=== PATIENT | male | born 1980 | race Caucasian/White ===

== ENCOUNTER 2017-03-16 13:47 | Emergency (ER) | payer SELFPAY ==
[~2017-03-16] VITALS: Ht 177.8 cm; Wt 74.8 kg
[~2017-03-16 13:47] MED LIST: 'PARAFON FORTE500 M1 PO; HYDROCODONE BIT1 T11 PO; IBU800 M1 PO; NAPROSYN500 MG PO; PENICILLIN-VK500 M1 PO
[2017-03-16 14:22] LABS: BASO # 0.1 10*3/uL (0.0-0.1); BASO % 0.5 % (0.0-1.0); EOS # 0.2 10*3/uL (0.0-0.4); EOS % 1.8 % (1.0-4.0); HEMATOCRIT 41.5 % (42.0-52.0); HEMOGLOBIN 13.8 g/dl (14.0-18.0); LYMPH # 2.5 10*3/uL (1.3-4.4); LYMPH % 22.4 % (27.0-41.0); MEAN CORPUSCULAR HGB 30.3 pg (27.0-31.0); MEAN CORPUSCULAR HGB CONC 33.3 g/dl (33.0-37.0); MEAN PLATELET VOLUME 9.9 fl (9.6-12.3); MONO # 0.7 10*3/uL (0.1-1.0); MONO % 6.5 % (3.0-9.0); NEUT # 7.6 10*3/uL (2.3-7.9); NEUT % 68.4 % (47.0-73.0); PLATELET COUNT AUTOMATED 257 10*3/uL (130-400); RED BLOOD COUNT 4.56 10*6/uL (4.50-5.90); WHITE BLOOD COUNT 11.1 10*3/uL (4.8-10.8)
[2017-03-16 14:38] LABS: ALBUMIN 3.6 gm/dl (3.1-4.5); ALKALINE PHOSPHATASE 84 U/L (45-117); BILIRUBIN, TOTAL 0.3 mg/dl (0.2-1.0); BUN 14 mg/dl (7-24); CARBON DIOXIDE 27 mmol/L (21-32); CHLORIDE 111 mmol/L (98-107); EST GLOM FILT AFRICAN AMERICAN > 60 ml/min; GLUCOSE 111 mg/dL (65-99); POTASSIUM 3.9 mmol/L (3.5-5.1); SGOT/AST 35 IU/L (3-35); SGPT/ALT 37 U/L (12-78); SODIUM 144 mmol/L (136-145); TOTAL PROTEIN 6.7 gm/dL (6.4-8.2); URIC ACID 6.1 mg/dL (3.5-7.2)
[2017-03-16] MEDS ORDERED: PREDNISONE20 M1 PO (14:51)
== END 2017-03-16 15:03 | disposition home or self-care (01) ==
LOC: ED 13:47
PROVIDERS: Physician Assistant
DX: M79.89 Other specified soft tissue disorders (principal); R20.0 Anesthesia of skin

== ENCOUNTER 2017-05-04 17:13 | Emergency (ER) | payer SELFPAY ==
[~2017-05-04] VITALS: Ht 177.8 cm; Wt 74.8 kg
[~2017-05-04 17:13] MED LIST changes: +PREDNISONE20 M1 PO
[2017-05-04] MEDS ORDERED: NAPROSYN500 MG PO (19:39)
== END 2017-05-04 19:41 | disposition home or self-care (01) ==
LOC: ED 17:13
DX: M25.421 Effusion, right elbow (principal); M25.461 Effusion, right knee; Z79.899 Other long term (current) drug therapy; V86.59XA Driver of other special all-terrain or other off-road motor vehicle injured in nontraffic accident, initial encounter; Y93.55 Activity, bike riding; Y92.89 Other specified places as the place of occurrence of the external cause; Y99.9 Unspecified external cause status

== ENCOUNTER 2017-09-01 10:49 | Emergency (ER) | payer SELFPAY ==
[~2017-09-01] VITALS: Ht 177.8 cm; Wt 72.6 kg
[2017-09-01] MEDS ORDERED: NAPROSYN500 MG PO (11:07)
[2017-09-01] MEDS ORDERED: NORCO 5-325 TA1 EACH PO (12:33)
== END 2017-09-01 13:07 | disposition home or self-care (01) ==
LOC: ED 10:49
DX: S62.642A Nondisplaced fracture of proximal phalanx of right middle finger, initial encounter for closed fracture (principal); F17.200 Nicotine dependence, unspecified, uncomplicated; W18.39XA Other fall on same level, initial encounter; Y93.89 Activity, other specified; Y92.89 Other specified places as the place of occurrence of the external cause; Y99.8 Other external cause status

== ENCOUNTER 2018-11-30 12:17 | Emergency (ER) | payer SELFPAY ==
[~2018-11-30] VITALS: Ht 175.2 cm; Wt 77.1 kg
--- NOTE | ~2018-11-30 | EKG ---
[place], [place] ELECTROCARDIOGRAM REPORT NAME: CHANDRAKANT LOYOLA UNIT #: [id number] ROOM: DOCTOR: EPIPHLATOSHA DRAFT REPORT BIRTHDATE: [birth year] [facility] Test Date: 2018-11-30 Test Time: 13:13:46 Pat Name: CHANDRAKANT LOYOLA Department: ED Room: Gender: Parts Cataloguer: Bebe Gaona : 1980 Requested By: ADRIANNA CRUZ Order Number: [id number] Reading MD: Kamar Araujo Measurements Intervals [place] Rate: 94 P: 21 MD: 133 QRS: 8 QRSD: 80 T: 17 QT: 357 QTc: 447 Interpretive Statements Sinus rhythm Abnormal R-wave progression, late transition Electronically Signed On 12-02-2018 10:36:29 PDT by Kamar Araujo CM:EKGRPT:ELECTROCARDIOGRAM REPORT [id number] ADRIANNA HEIN DRAFT REPORT ADRIANNA CRUZ M.D.
[~2018-11-30 12:17] MED LIST changes: +NORCO 5-325 TA1 EACH PO
[2018-11-30 13:24] LABS: BASO # 0.1 10*3/uL (0.0-0.1); BASO % 0.6 % (0.0-1.0); EOS # 0.3 10*3/uL (0.0-0.4); EOS % 2.9 % (1.0-4.0); HEMATOCRIT 50.7 % (42.0-52.0); HEMOGLOBIN 17.5 g/dl (14.0-18.0); LYMPH # 2.4 10*3/uL (1.3-4.4); MEAN CELL VOLUME 94.8 fl (80.0-94.0); MEAN CORPUSCULAR HGB 32.7 pg (27.0-31.0); MEAN CORPUSCULAR HGB CONC 34.5 g/dl (33.0-37.0); MEAN PLATELET VOLUME 9.6 fl (9.6-12.3); MONO # 0.8 10*3/uL (0.1-1.0); MONO % 9.3 % (3.0-9.0); NEUT # 5.4 10*3/uL (2.3-7.9); NEUT % 59.9 % (47.0-73.0); PLATELET COUNT AUTOMATED 267 10*3/uL (130-400); RED BLOOD COUNT 5.35 10*6/uL (4.50-5.90); RED CELL DISTRI WIDTH 14.7 % (0-14.5)
[2018-11-30 13:50] LABS: ALBUMIN 4.1 gm/dl (3.1-4.5); ALKALINE PHOSPHATASE 152 U/L (45-117); BUN 9 mg/dl (7-24); CHLORIDE 104 mmol/L (98-107); SGOT/AST 73 IU/L (3-35); SGPT/ALT 108 U/L (12-78); SODIUM 136 mmol/L (136-145); TROPONIN I < 0.015 ng/ml (<0.045)
[2018-11-30] MEDS ORDERED: NAPROSYN500 MG PO (16:10)
== END 2018-11-30 16:13 | disposition home or self-care (01) ==
LOC: ED 12:17
PROVIDERS: Emergency Medicine
DX: R09.1 Pleurisy (principal)

== ENCOUNTER 2021-04-18 07:58 | Emergency (ER) | payer MEDICAID ==
[~2021-04-18] VITALS: Wt 86.2 kg
[2021-04-18 08:43] LABS: BASO # 0.1 10*3/uL (0.0-0.1); BASO % 0.6 % (0.0-1.0); EOS # 0.2 10*3/uL (0.0-0.4); EOS % 1.8 % (1.0-4.0); HEMATOCRIT 47.6 % (42.0-52.0); LYMPH # 3.6 10*3/uL (1.3-4.4); LYMPH % 36.2 % (27.0-41.0); MEAN CELL VOLUME 93.9 fl (80.0-94.0); MEAN CORPUSCULAR HGB 33.5 pg (27.0-31.0); MEAN CORPUSCULAR HGB CONC 35.7 g/dl (33.0-37.0); MEAN PLATELET VOLUME 10.1 fl (9.6-12.3); MONO # 0.7 10*3/uL (0.1-1.0); MONO % 7.3 % (3.0-9.0); NEUT # 5.4 10*3/uL (2.3-7.9); NEUT % 53.7 % (47.0-73.0); PLATELET COUNT AUTOMATED 279 10*3/uL (130-400); RED BLOOD COUNT 5.07 10*6/uL (4.50-5.90); RED CELL DISTRI WIDTH 14.1 % (0-14.5)
[2021-04-18 08:57] LABS: ALBUMIN 4.3 gm/dl (3.1-4.5); ALKALINE PHOSPHATASE 142 U/L (45-117); BUN 8 mg/dl (7-24); CHLORIDE 103 mmol/L (98-107); LIPASE 79 U/L (73-393); SGOT/AST 175 IU/L (3-35); SGPT/ALT 153 U/L (12-78); SODIUM 137 mmol/L (136-145); TOTAL PROTEIN 8.2 gm/dL (6.4-8.2)
[2021-04-18 09:31] LABS: BILIRUBIN Negative (Negative); BLOOD 2+ (Negative); CLARITY Clear (Clear); COLOR Dark Yellow (Yellow); GLUCOSE 1+ (Negative); KETONE 3+ (Negative); LEUKO ESTERASE Trace (Negative); NITRITE Negative (Negative); SPECIFIC GRAVITY 1.025 (1.001-1.030)
[2021-04-18 10:07] LABS: BACTERIA 1+; CALCIUM OXALATE CRYSTALS 2+; MUCOUS 2+; RBC 41-50 rbc/hpf (0-2)
== END 2021-04-18 15:27 | disposition home or self-care (01) ==
LOC: ED 07:58
PROVIDERS: Emergency Medicine
DX: N13.2 Hydronephrosis with renal and ureteral calculous obstruction (principal); Z79.899 Other long term (current) drug therapy

== ENCOUNTER → 2021-11-28 | Outpatient (CLI) | payer OTHER | END | disposition home or self-care (01) | LOC: CARD 08:17 | PROVIDERS: ATTEND Physician Assistant | DX: I10 Essential (primary) hypertension (principal) ==

== ENCOUNTER → 2021-11-30 | Outpatient (CLI) | payer OTHER | END | disposition home or self-care (01) | LOC: US 00:57 | PROVIDERS: ATTEND Physician Assistant | DX: R74.8 Abnormal levels of other serum enzymes (principal) ==

== ENCOUNTER 2023-11-14 04:37 | Emergency (ER) | payer OTHER ==
[~2023-11-14] VITALS: Ht 167.6 cm; Wt 72.6 kg
[2023-11-14 05:11] LABS: ACT PARTIAL THROMBO TIME 27.7 SECONDS (20.0-32.1)
[2023-11-14 05:20] LABS: ALKALINE PHOSPHATASE 110 U/L (46-116); BUN 7 mg/dl (9-23); CHLORIDE 104 mmol/L (98-107); POTASSIUM 3.7 mmol/L (3.4-5.1); SGPT/ALT 37 U/L (5-49); TOTAL PROTEIN 8.3 gm/dL (6.0-8.0)
[2023-11-14] MEDS ORDERED: Lopressor25 MG PO (05:23)
[2023-11-14] MEDS ORDERED: MG-AL HYDROXIDE/SIMETICONE 30 ML UDC PO STA (05:29)
[2023-11-14] MEDS ORDERED: Lidocaine Hydrochloride 15 ML UDC PO STA (05:29)
[2023-11-14] MEDS ORDERED: Dicyclomine Hydrochloride 20 MG/10 ML OSYR PO STA (05:29)
[2023-11-14 06:04] LABS: BASO % 0.1 % (0.0-1.0); HEMATOCRIT 53.1 % (42.0-52.0); LYMPH # 1.4 10*3/uL (1.3-4.4); LYMPH % 9.6 % (27.0-41.0); MEAN CELL VOLUME 92.7 fl (80.0-94.0); MEAN CORPUSCULAR HGB 32.3 pg (27.0-31.0); MEAN CORPUSCULAR HGB CONC 34.8 g/dl (33.0-37.0); MEAN PLATELET VOLUME 9.7 fl (9.6-12.3); MONO # 0.7 10*3/uL (0.1-1.0); MONO % 4.8 % (3.0-9.0); NEUT # 12.6 10*3/uL (2.3-7.9); PLATELET COUNT AUTOMATED 361 10*3/uL (130-400); RED BLOOD COUNT 5.73 10*6/uL (4.50-5.90); RED CELL DISTRI WIDTH 14.2 % (0-14.5); WHITE BLOOD COUNT 14.8 10*3/uL (4.8-10.8)
[2023-11-14] MEDS ORDERED: ACID REDUCER10 MG PO (06:08)
== END 2023-11-14 06:16 | disposition home or self-care (01) ==
LOC: ED 04:37
PROVIDERS: Internal Medicine
DX: K21.9 Gastro-esophageal reflux disease without esophagitis (principal); I10 Essential (primary) hypertension; Z98.890 Other specified postprocedural states; Z79.899 Other long term (current) drug therapy

== ENCOUNTER 2024-01-13 10:08 | Inpatient (IN) | payer OTHER ==
[~2024-01-13] VITALS: Ht 167.6 cm; Wt 77.2 kg
[~2024-01-13 10:08] MED LIST changes: +ACID REDUCER10 MG PO; +Lopressor25 MG PO
[2024-01-13 10:14] VITALS: BP 136/101
[2024-01-13 10:41] LABS: BASO # 0.1 10*3/uL (0.0-0.1); BASO % 0.4 % (0.0-1.0); EOS # 0.2 10*3/uL (0.0-0.4); EOS % 1.3 % (1.0-4.0); HEMATOCRIT 52.9 % (42.0-52.0); LYMPH % 17.5 % (27.0-41.0); MEAN CELL VOLUME 96.2 fl (80.0-94.0); MEAN CORPUSCULAR HGB 32.7 pg (27.0-31.0); MEAN PLATELET VOLUME 9.6 fl (9.6-12.3); MONO # 0.8 10*3/uL (0.1-1.0); NEUT # 8.2 10*3/uL (2.3-7.9); NEUT % 73.5 % (47.0-73.0); PLATELET COUNT AUTOMATED 251 10*3/uL (130-400); RED CELL DISTRI WIDTH 13.3 % (0-14.5); WHITE BLOOD COUNT 11.1 10*3/uL (4.8-10.8)
[2024-01-13 11:03] LABS: ALKALINE PHOSPHATASE 109 U/L (46-116); BUN 11 mg/dl (9-23); CHLORIDE 100 mmol/L (98-107); LIPASE 39 U/L (12-53); POTASSIUM 3.9 mmol/L (3.4-5.1); SGPT/ALT 28 U/L (5-49); TOTAL PROTEIN 7.8 gm/dL (6.0-8.0)
[2024-01-13] MEDS ORDERED: Vancomycin Hydrochloride 250 ML IV ONE (12:30)
[2024-01-13] MEDS ORDERED: Ketorolac Tromethamine 15 MG/ML VIAL IV ONE (12:30)
[2024-01-13] MEDS ORDERED: Piperacillin Sodium/Tazobact 50 ML IV ONE (12:30)
[2024-01-13] MEDS ORDERED: ACETAMINOPHEN 650 MG SUPP R PRN (12:55)
[2024-01-13] MEDS ORDERED: ACETAMINOPHEN 325 MG TAB PO PRN (12:55)
[2024-01-13] MEDS ORDERED: Acetaminophen/Hydrocodone 5 MG/325 MG TABLET PO PRN (12:55)
[2024-01-13] MEDS ORDERED: BISACODYL 5 MG TAB PO PRN (12:55)
[2024-01-13] MEDS ORDERED: Magnesium Hydroxide 30 ML UDC PO PRN (12:55)
[2024-01-13] MEDS ORDERED: BISACODYL 10 MG SUPP R PRN (12:55)
[2024-01-13] MEDS ORDERED: Ondansetron Hydrochloride 4 MG/2 ML VIAL IV PRN (12:55)
[2024-01-13 14:00] VITALS: BP 142/89
[2024-01-13] MEDS ORDERED: Vancomycin Hydrochloride 1,000 MG in SODIUM CHLORIDE 0.9% 250 ML IV SCH (15:40)
[2024-01-13] MEDS ORDERED: PROTONIX20 MG PO (15:48)
[2024-01-13] MEDS ORDERED: IOHEXOL 300 MG/ML 100 ML VIAL IV ONE (16:00)
[2024-01-13] MEDS ORDERED: Ceftriaxone Sodium 10 ML IV ONE (16:00)
[2024-01-13] MEDS ORDERED: IOHEXOL 300 MG/ML 100 ML VIAL ONE (16:11)
[2024-01-13] MEDS ORDERED: MORPHINE Sulfate 2 MG/ML SYR IV PRN (16:25)
[2024-01-13 16:54] VITALS: BP 138/84
[2024-01-13 17:30] VITALS: BP 133/90
[2024-01-13 20:00] VITALS: BP 139/86
[2024-01-13] MEDS ORDERED: VANCOMYCIN/WATER FOR INJ (PEG) 250 ML IV SCH (22:00)
[2024-01-14] VITALS: BP 127/88
[2024-01-14 06:51] LABS: BASO # 0.1 10*3/uL (0.0-0.1); BASO % 0.6 % (0.0-1.0); EOS # 0.3 10*3/uL (0.0-0.4); EOS % 3.3 % (1.0-4.0); HEMATOCRIT 48.9 % (42.0-52.0); LYMPH # 2.6 10*3/uL (1.3-4.4); LYMPH % 30.1 % (27.0-41.0); MEAN CELL VOLUME 97.6 fl (80.0-94.0); MEAN CORPUSCULAR HGB 32.3 pg (27.0-31.0); MEAN CORPUSCULAR HGB CONC 33.1 g/dl (33.0-37.0); MEAN PLATELET VOLUME 9.6 fl (9.6-12.3); MONO # 0.7 10*3/uL (0.1-1.0); MONO % 8.5 % (3.0-9.0); NEUT % 57.3 % (47.0-73.0); PLATELET COUNT AUTOMATED 224 10*3/uL (130-400); RED BLOOD COUNT 5.01 10*6/uL (4.50-5.90); RED CELL DISTRI WIDTH 13.5 % (0-14.5); WHITE BLOOD COUNT 8.7 10*3/uL (4.8-10.8)
[2024-01-14 07:32] LABS: ALKALINE PHOSPHATASE 103 U/L (46-116); BUN 9 mg/dl (9-23); CHLORIDE 107 mmol/L (98-107); CHOLESTEROL 159 mg/dL (<200); LDL CHOLESTEROL 96 mg/dL (9-159); POTASSIUM 4.3 mmol/L (3.4-5.1); SGPT/ALT 28 U/L (5-49); TOTAL PROTEIN 6.7 gm/dL (6.0-8.0); TRIGLYCERIDES 132 mg/dl (<150)
[2024-01-14 08:00] VITALS: BP 135/85
[2024-01-14] MEDS ORDERED: HYDROCODONE-AC1 EAC1 PO (09:33)
[2024-01-14] MEDS ORDERED: CEPHALEXIN500 M1 PO (09:33)
[2024-01-14] MEDS ORDERED: Enoxaparin Sodium 40 MG/0.4 ML SYR SC SCH (10:00)
[2024-01-14] MEDS ORDERED: Ceftriaxone Sodium 1 GM in SYRINGE INFUSION 10 ML IV SCH (16:00)
== END 2024-01-14 10:56 | disposition home or self-care (01) | DRG 563 ==
LOC: ED 10:08 → 4E 12:38 → EDHOLD 12:38 → 4E 17:09
PROVIDERS: Internal Medicine; Student in an Organized Health Care Education/Training Program; ADMIT Internal Medicine; ATTEND Internal Medicine
DX: S82.55XA Nondisplaced fracture of medial malleolus of left tibia, initial encounter for closed fracture (principal); L03.116 Cellulitis of left lower limb; E87.1 Hypo-osmolality and hyponatremia; S82.492A Other fracture of shaft of left fibula, initial encounter for closed fracture; R73.9 Hyperglycemia, unspecified; E80.6 Other disorders of bilirubin metabolism; M25.572 Pain in left ankle and joints of left foot; F17.210 Nicotine dependence, cigarettes, uncomplicated; I10 Essential (primary) hypertension; W18.39XA Other fall on same level, initial encounter; Y93.89 Activity, other specified; Y92.89 Other specified places as the place of occurrence of the external cause; Z71.6 Tobacco abuse counseling; Y99.8 Other external cause status; Z82.49 Family history of ischemic heart disease and other diseases of the circulatory system; Z83.3 Family history of diabetes mellitus

== ENCOUNTER 2024-05-03 10:45 | Emergency (ER) | payer SELFPAY ==
[~2024-05-03] VITALS: Ht 167.6 cm; Wt 78.0 kg
[~2024-05-03 10:45] MED LIST changes: +CEPHALEXIN500 M1 PO; +HYDROCODONE-AC1 EAC1 PO; +PROTONIX20 MG PO
[2024-05-03] MEDS ORDERED: ACETAMINOPHEN 325 MG TAB PO ONE (12:55)
[2024-05-03] MEDS ORDERED: LIDOCAINE 1 EA PATCH T ONE (13:20)
[2024-05-03] MEDS ORDERED: LIDOCAINE 4% PATCH T ONE (13:40)
[2024-05-03] MEDS ORDERED: TYLENOL EXTRA500 MG PO (14:32)
[2024-05-03] MEDS ORDERED: ASPERCREME LID1 EACH T (14:32)
[2024-05-03] MEDS ORDERED: Motrin,Rufen400 MG PO (14:32)
== END 2024-05-03 14:42 | disposition home or self-care (01) ==
LOC: ED 10:45
DX: S22.42XA Multiple fractures of ribs, left side, initial encounter for closed fracture (principal); I10 Essential (primary) hypertension; E87.1 Hypo-osmolality and hyponatremia; D64.9 Anemia, unspecified; S20.212A Contusion of left front wall of thorax, initial encounter; S49.92XA Unspecified injury of left shoulder and upper arm, initial encounter; Z98.890 Other specified postprocedural states; F17.210 Nicotine dependence, cigarettes, uncomplicated; W11.XXXA Fall on and from ladder, initial encounter; Y93.89 Activity, other specified; Y92.89 Other specified places as the place of occurrence of the external cause; Y99.8 Other external cause status

== ENCOUNTER 2025-08-01 15:10 | Emergency (ER) | payer OTHER ==
[~2025-08-01] VITALS: Ht 167.6 cm; Wt 81.6 kg
[~2025-08-01 15:10] MED LIST changes: +ASPERCREME LID1 EACH T; +Motrin,Rufen400 MG PO; +TYLENOL EXTRA500 MG PO
[2025-08-01] MEDS ORDERED: [UNRECOGNIZED DRUG - CODE] PO (19:44)
[2025-08-01] MEDS ORDERED: NAPROXEN250 MG PO (19:49)
== END 2025-08-01 20:01 | disposition home or self-care (01) ==
LOC: ED 15:10
DX: M87.9 Osteonecrosis, unspecified (principal); I10 Essential (primary) hypertension; Z98.890 Other specified postprocedural states